=== PATIENT | male | born 2005 | race Caucasian/White ===

== ENCOUNTER 2025-04-10 05:54 | Day surgery (SDC) | payer OTHER, SELFPAY ==
[2025-04-10] VITALS (7 sets, daily range): BP systolic 0–153; BP diastolic 43–90; BMI 24.3
[2025-04-10] MEDS: NORMOSOL-R/PLASMALYTE-A 1000 IV (06:23)
[2025-04-10] MEDS: TYLENOL 1000 MG PO (06:23)
--- NOTE | 2025-04-10 07:06 | HP.FOC2 ---
Focused History & Physical
Chief Complaint
HPI:
Chief Complaint: Pilonidal cyst
HPI / Indication for Planned Procedure: This is a 19-year-old male who presents with a pilonidal cyst here for definitive excision with flap reconstruction.
Relevant Past Medical History: Negative
Relevant Social History: Negative
Relevant Family History: Negative
Relevant Past Surgical History: Negative
Review of Systems
Review of Pertinent Systems: All Systems Negative
Medication
See Medication form for detailed medications: Yes
Medication List (including Herbals & OTC):
ibuprofen 400 mg tablet 400 mg PO Q6H PRN pain 04/04/25
Medications Reviewed: Yes
Allergies and Reactions
Patient has Allergies: No
Noted Allergies and Reactions:
Allergy/AdvReac Type Severity Reaction Status Date / Time
No Known Allergies Allergy Verified 04/10/25 06:12
Pertinent Physical Exam
All Other Systems: Negative
Head/Neck: Normal
Diagnosis / Assessment
This is a 19-year-old male who presents with a pilonidal cyst
Plan / Procedure
Pilonidal excision with flap reconstruction.
Anesthesia/Sedation to be done by Anesthesia Provider: Yes
--- NOTE | 2025-04-10 07:08 | W.SUR.PREOP ---
Pre-Operative Surgical Note
-
I have examined this patient prior to the performance of the scheduled procedure.
The patient's condition is unchanged from the time of the current History and
Physical and the patient is able to undergo the scheduled procedure.
--- NOTE | 2025-04-10 09:14 | W.IMMPOSTOP ---
Surgical Immed Post Op Note
-
Primary Surgeon: Logan Baker MD
Assisting Surgeon: None
Pre-op Diagnosis: Pilonidal cyst
Post-op Diagnosis: Same
Procedure Performed:
1. Excision of a pilonidal cyst
2. Local advancement (Karydakis) flap reconstruction
Anesthesia Type: General
Specimen / Cultures: Pilonidal cyst
Estimated Blood Loss: 7 cc
Complications: None
Operative Findings: 2 sinuses identified, the superior 1 had pus and hair emanating from the wound. This tracked much further up into the right than anticipated. After complete excision of the pilonidal cyst and tracts the wound measured roughly 6
inches in length by 1 inch in width and depth. The wound was closed in layers with Vicryl sutures over a 15 [place]z round Howard drain which was secured to the skin with a 3-0 nylon suture. The wound was closed with glue.
--- NOTE | 2025-04-10 09:21 | OR.RPT ---
Addendum entered and electronically signed by Logan Baker MD 04/10/25 11:21:
The personal injury legal assistant should read: 'GAUDENCIO Garrett'
And at the end of the body of the operation report it should read: 'I was the attending physician and performed the procedure with assistance of the PA above. The assistance of GAUDENCIO Garrett was required due to the complexity of the procedure.
During the procedure Suzanne assisted with retraction, resection, and closure of the wound. I was present for all portions of the case.'
Original Note:
Operative Report
Operative Report
Patient Name: Chaz Mooney
: 2005
Date of Operation: 04/10/2025
Preoperative Diagnosis: Pilonidal Cyst
Postoperative Diagnosis: Same
Procedure(s):
1. Excision of pilonidal cyst
2. Karydakis Flap (Local advancement flap)
Surgeon(s):
Dr. Baker
Physician Practice Market Manager(s):
None
Anesthesia: MAC
Estimated Blood Loss: 7 cc
Urine Output: None
Drains/Lines/Implants: None
Specimens: Pilonidal Cyst
Indication for surgery:
The patient was found to have a pilonidal cyst. After review of their therapeutic options, they elected to pursue operative excision with flap coverage
Operative Findings: 2 sinuses identified, the superior 1 had pus and hair emanating from the wound. This tracked much further up into the right than anticipated. After complete excision of the pilonidal cyst and tracts the wound measured roughly 6
inches in length by 1 inch in width and depth. The wound was closed in layers with Vicryl sutures over a 15 Guinean round Howard drain which was secured to the skin with a 3-0 nylon suture. The wound was closed with glue.
Details of the operation:
After successful induction of general anesthesia, the patient was rotated prone and placed in the jackknife position. The hair around the buttocks was clipped and the area was prepped and draped in the usual fashion. A team timeout was performed.
An off midline, asymmetric ellipse was marked. The operative field area was anesthetized with 20cc quarter percent Marcaine with epi. An incision was made through the skin line sharply with a 15 blade and dissection carried down through
subcutaneous tissue. Medially the incision was taken at a 90 degrees down towards the coccyx, laterally incision was taken out of 45 degree angle. The entire cyst along with the tracts and midline pits were excised, no disease was left behind.
The cyst extended further cephalad and to the patient's left more than anticipated and thus we extended our wound accordingly. The wound was irrigated with a copious amount of sterile saline and hemostasis was achieved. The specimen was passed off
the field. We then began developing our flap on the medial aspect of the wound, roughly 1 cm thick, and 2 cm deep. The tape holding the buttocks was released and it appeared the flap would close with minimal tension. The first layer of
subcutaneous tissue was approximated using a running 2-0 Vicryl suture. Given the extent of the wound, we elected to leave a 15 Guinean drain which was introduced through a stab incision in the right buttocks and secured to the skin with a 3-0 nylon
suture. The second layer of the wound was approximated using running 2-0 Vicryl. The skin was then approximated using interrupted 3-0 Vicryl's followed by a running 4-0 Monocryl. The skin was then glued with Dermabond. The patient tolerated the
procedure well, and returned to the Recovery Room in stable condition. Sponge and instrument counts were correct.
I was the attending physician and present for all critical portions of the case
Logan Baker MD
== END 2025-04-10 11:00 | disposition home or self-care (01) ==
LOC: SDS 05:54
PROVIDERS: ATTENDING PHYSICIAN Surgery; FAMILY PHYSICIAN Pediatrics
DX: L05.91 Pilonidal cyst without abscess (principal)
CPT/HCPCS: 11772; 88304